=== PATIENT | female | born 1970 | race Caucasian/White ===

== ENCOUNTER 2017-05-16 05:05 | Emergency (ER) | payer SELFPAY ==
[~2017-05-16] VITALS: Ht 167.6 cm; Wt 64.0 kg
[2017-05-16 05:10] VITALS: Ht 167.6 cm; Wt 64.0 kg
[2017-05-16] MEDS ORDERED: ASPIRIN 325 MG TAB PO STA ×2 (05:18→06:37)
--- NOTE | 2017-05-16 05:37 | RADRPT ---
PROCEDURE: XR Chest. CLINICAL INDICATION: Chest pain TECHNIQUE: A single AP view of the chest was obtained. COMPARISON: None. FINDINGS: No focal airspace opacification, pleural effusion or pneumothorax is seen. The cardiomediastinal si lhouette is within normal limits for size. The osseous structures are unremarkable. IMPRESSION: Unremarkable chest x-ray. RPTAT: HH .Janiya Toledo MD, MD Date Time Electronically viewed and signed by .Janiya Toledo MD, on 05/16/2017 05:37 .G/
[2017-05-16] MEDS ORDERED: morphine 4 MG/ML VIAL IV STA (06:37)
[2017-05-16] MEDS ORDERED: ONDANSETRON 4 MG INJ IV STA (06:37)
[2017-05-16 06:58] LABS: BASOPHILS % 0.8 % (0.0-2.0); EOSINOPHILS # 0.2 10^3/ul (0.0-0.5); EOSINOPHILS % 3.2 % (0.0-7.0); HEMOGLOBIN 12.7 g/dl (12.0-16.0); LYMPHOCYTES % 21.5 % (15.0-51.0); MEAN CORPUSCULAR HEMOGLOBIN 29.3 pg (29.0-33.0); MEAN CORPUSCULAR HGB CONC 33.4 g/dl (32.0-37.0); MEAN CORPUSCULAR VOLUME 87.6 fl (82.0-101.0); MEAN PLATELET VOLUME 12.1 fl (7.4-10.4); MONOCYTE # 0.5 10^3/ul (0.3-0.9); MONOCYTES % 9.7 % (0.0-11.0); NEUTROPHIL # 3.1 10^3/ul (1.6-7.5); NEUTROPHILS % 64.6 % (39.0-77.0); PLATELET COUNT 200 10^3/UL (140-415); RED BLOOD COUNT 4.34 10^6/ul (4.20-5.40); RED CELL DISTRIBUTION WIDTH 13.8 % (11.5-14.5); WHITE BLOOD COUNT 4.7 10^3/ul (4.8-10.8)
[2017-05-16 07:06] LABS: ANION GAP 13 (8-16); BLOOD UREA NITROGEN 11 mg/dl (7-20); CALCIUM 9.1 mg/dl (8.4-10.2); CARBON DIOXIDE 25 mmol/L (21-31); CHLORIDE 108 mmol/L (97-110); CREATININE 0.61 mg/dl (0.44-1.00); GLUCOSE 92 mg/dl (70-220); POTASSIUM 3.5 mmol/L (3.5-5.1); SODIUM 142 mmol/L (135-144)
[2017-05-16] MEDS ORDERED: IOHEXOL 300MG/ML 150 ML BTL ONE (07:13)
[2017-05-16] MEDS ORDERED: SOD CHLORIDE 0.9% 100 ML ONE (07:13)
[2017-05-16 07:18] LABS: B-TYPE NATRIURETIC PEPTIDE 41 PG/ML (0-125)
[2017-05-16 07:30] LABS: TROPONIN-I < 0.012 ng/ml (0.00-0.12)
--- NOTE | 2017-05-16 08:48 | RADRPT ---
PROCEDURE: CT pulmonary angiogram. CLINICAL INDICATION: Chest pain and shortness of breath. TECHNIQUE: CT scan of the chest and CT pulmonary angiogram was performed utilizing axial tomograp hic imaging from the thoracic inlet to the domes of the diaphragm. High-resolution thin slice coron al and sagittal imaging was obtained from the axial source images. 3-D volumetric rendered post pro cessing was performed as well. The patient was examined following the uncomplicated intravenous adm inistration of 90 cc of Omnipaque-300. The images were reviewed on a PACS workstation. The total exa m CTDI equals 19.72, 6.10 and the total exam DLP equals 224.25 mGy-cm. One or more of the following dose reduction techniques were used: Automated exposure control, adjustment of the mA and / or kV according to patient size, or use of iterative reconstruction technique. COMPARISON: No prior studies are available for comparison. FINDINGS: The lungs demonstrate bibasilar atelectatic changes. No focal airspace opacity, pleural effusion, o r pneumothorax is seen. No pulmonary nodules or masses are identified. There is no abnormal interst itial thickening. The trachea and proximal bronchi are unremarkable. The visualized thyroid is unremarkable. The heart is grossly normal in size and configuration. The aorta demonstrates normal branching pattern. The aorta is normal in caliber and contains vascular calcifications. There is no evidence of aortic dissection. The central pulmonary arteries are tuan l in caliber. The attenuation of the central pulmonary arteries measures 350 HU. No filling defect s are identified within the proximal pulmonary arterial branches to suggest pulmonary embolism. No hilar, mediastinal, or axillary lymphadenopathy is identified. Limited evaluation of the upper abdomen is unremarkable. The osseous structures demonstrate mild de xtroscoliosis. IMPRESSION: 1. No CT evidence for pulmonary embolism. 2. Unremarkable CT of the chest. RPTAT: HH .Janiya Toledo MD, Date Time Electronically viewed and signed by .Janiya Toledo MD, on 05/16/2017 08:48 .G/
[2017-05-16] MEDS ORDERED: ATOR20TA38 PO (09:13)
[2017-05-16] MEDS ORDERED: ASPI-664 PO (09:13)
[2017-05-16] MEDS ORDERED: METO-448 PO (09:13)
--- NOTE | 2017-05-16 10:00 | ERD ---
ER Documentation Chief Complaint Date/Time DATE: 05/16/17 TIME: 09:57 Chief Complaint intermittent CP x5days, sudden SOB 45 min [employer]. hx elevated trop, HTN HPI This is a 46-year-old female who says she was awoke this morning at 4 AM some substernal chest pressure and shortness of breath. She says she feels like it is hard to get a deep breath but it is very mild. Patient had similar symptoms but much worse chest pain in December/January 2017. The patient was seen at [facility] and was found to have an elevated troponin. The patient then went through a nuclear stress test followed by heart catheterization at [facility]. The heart catheterization was completely clean according to the patient and showed no signs of any plaque buildup. They told her that she probably was having some type of vasospasm. She was put on a beta-yakov and a statin medication although she states her cholesterol was found to be normal. She stated that there is debate among the doctors whether or not she should be on a statin or not. Patient states her chest pressure is nearly gone at this point. No recent cough or trauma. She is not on any hormones and does not smoke ROS All systems reviewed and are negative except as per history of present illness. Medications Home Meds Active Scripts Diltiazem Hcl (DILTIAZEM 24HR CD) 180 Mg Cap.er.24h, 180 MG PO DAILY, #30 CAP Prov:BIJAN LANDEROS DO 05/16/17 Reported Medications Atorvastatin Calcium* (Atorvastatin Calcium*) 20 Mg Tablet, 20 MG PO QHS, #30 TAB 05/16/17 Metoprolol Tartrate* (Lopressor*) 25 Mg Tab, 12.5 MG PO BID, #60 TAB 05/16/17 Aspirin (Low Dose Aspirin) 81 Mg Tablet.dr, 81 MG PO DAILY, #30 TAB 05/16/17 Allergies Allergies: Coded Allergies: No Known Allergy (Unverified , 05/16/17) PMhx/Soc Medical and Surgical Hx: pt denies Medical Hx, pt denies Surgical Hx Hx Alcohol Use: Yes (occasional) Hx Substance Use: No Hx Tobacco Use: No Smoking Status: Never smoker FmHx Family History: No coronary disease Physical Exam Vitals Vital Signs Date Time Temp Pulse Resp B/P Pulse Ox O2 Delivery O2 Flow Rate FiO2 05/16/17 10:30 61 20 108/57 100 Room Air 05/16/17 08:51 67 20 126/71 100 Room Air 05/16/17 07:00 66 20 110/62 100 05/16/17 05:10 97.7 69 20 153/84 100 Physical Exam Const: Well-developed, well-nourished Head: Atraumatic, normocephalic Eyes: Normal Conjunctiva, PERRLA, EOMI, normal sclera, no nystagmus ENT: Normal External Ears, Nose and Mouth, moist mucus membranes. Neck: Full range of motion. No meningismus, no lymphadenopathy. Resp: Clear to auscultation bilaterally, no wheezing, rhonchi, rales Cardio: Regular rate and rhythm, no murmurs, S1 S2 present Abd: Soft, non tender x 4, non distended. Normal bowel sounds, no guarding or rebound, no pulsitile abdominal masses or bruits Skin: No petechiae or rashes, no ecchymosis , no maculopapular rash Back: No midline or flank tenderness Ext: No cyanosis, or edema, FROM x 4, normal inspection, neurovascularly intact x 4 Neur: Awake and alert, STR 5/5 x 4, sensation intact x 4, no focal findings, cerebellum intact Psych: Normal Mood and Affect Result Diagram: 05/16/17 0550 05/16/17 0550 Results 24 hrs Laboratory Tests Test 05/16/17 05:50 05/16/17 10:43 White Blood Count 4.710^3/ul Red Blood Count 4.3410^6/ul Hemoglobin 12.7g/dl Hematocrit 38.0% Mean Corpuscular Volume 87.6fl Mean Corpuscular Hemoglobin 29.3pg Mean Corpuscular Hemoglobin Concent 33.4g/dl Red Cell Distribution Width 13.8% Platelet Count 28747^3/UL Mean Platelet Volume 12.1fl Neutrophils % 64.6% Lymphocytes % 21.5% Monocytes % 9.7% Eosinophils % 3.2% Basophils % 0.8% Nucleated Red Blood Cells % 0.0/100WBC Neutrophils # 3.110^3/ul Lymphocytes # 1.010^3/ul Monocytes # 0.510^3/ul Eosinophils # 0.210^3/ul Basophils # 0.010^3/ul Nucleated Red Blood Cells # 0.010^3/ul Sodium Level 142mmol/L Potassium Level 3.5mmol/L Chloride Level 108mmol/L Carbon Dioxide Level 25mmol/L Anion Gap 13 Blood Urea Nitrogen 11mg/dl Creatinine 0.61mg/dl Glucose Level 92mg/dl Calcium Level 9.1mg/dl Troponin I < 0.012ng/ml < 0.012ng/ml B-Type Natriuretic Peptide 41PG/ML Current Medications Medications (Trade) Dose Ordered Sig/Meagan Route PRN Reason Start Time Stop Time Status Last Admin Dose Admin Aspirin (Aspirin) 325 mg ONCE STAT PO 05/16/17 05:18 05/16/17 05:20 DC 05/16/17 06:14 Aspirin (Aspirin) 325 mg ONCE STAT PO 05/16/17 06:37 05/16/17 06:40 DC Morphine Sulfate (morphine) 4 mg ONCE STAT IV 05/16/17 06:37 05/16/17 06:40 DC Ondansetron HCl 4 mg 4 mg ONCE STAT IV 05/16/17 06:37 05/16/17 06:40 DC Sodium Chloride (NS) 100 ml @ ud STK-MED ONCE .ROUTE 05/16/17 07:13 05/16/17 07:14 DC 05/16/17 08:15 Iohexol (Omnipaque 300mg/ ml) 150 ml STK-MED ONCE .ROUTE 05/16/17 07:13 05/16/17 07:14 DC 05/16/17 08:15 Procedures/MDM PROCEDURE: CT pulmonary angiogram. CLINICAL INDICATION: Chest pain and shortness of breath. TECHNIQUE: CT scan of the chest and CT pulmonary angiogram was performed utilizing axial tomographic imaging from the thoracic inlet to the domes of the diaphragm. High-resolution thin slice coronal and sagittal imaging was obtained from the axial source images. 3-D volumetric rendered post processing was performed as well. The patient was examined following the uncomplicated intravenous administration of 90 cc of Omnipaque-300. The images were reviewed on a PACS workstation. The total exam CTDI equals 19.72, 6.10 and the total exam DLP equals 224.25 mGy-cm. One or more of the following dose reduction techniques were used: Automated exposure control, adjustment of the mA and / or kV according to patient size, or use of iterative reconstruction technique. COMPARISON: No prior studies are available for comparison. FINDINGS: The lungs demonstrate bibasilar atelectatic changes. No focal airspace opacity , pleural effusion, or pneumothorax is seen. No pulmonary nodules or masses are identified. There is no abnormal interstitial thickening. The trachea and proximal bronchi are unremarkable. The visualized thyroid is unremarkable. The heart is grossly normal in size and configuration. The aorta demonstrates normal branching pattern. The aorta is normal in caliber and contains vascular calcifications. There is no evidence of aortic dissection. The central pulmonary arteries are normal in caliber. The attenuation of the central pulmonary arteries measures 350 HU. No filling defects are identified within the proximal pulmonary arterial branches to suggest pulmonary embolism. No hilar, mediastinal, or axillary lymphadenopathy is identified. Limited evaluation of the upper abdomen is unremarkable. The osseous structures demonstrate mild dextroscoliosis. IMPRESSION: 1. No CT evidence for pulmonary embolism. 2. Unremarkable CT of the chest. RPTAT: .Janiya Toledo MD, Date Time Electronically viewed and signed by .Janiya Toledo MD, on 05/16/2017 08 :48 .G/ CC: BIJAN LANDEROS DO PROCEDURE: XR Chest. CLINICAL INDICATION: Chest pain TECHNIQUE: A single AP view of the chest was obtained. COMPARISON: None. FINDINGS: No focal airspace opacification, pleural effusion or pneumothorax is seen. The cardiomediastinal silhouette is within normal limits for size. The osseous structures are unremarkable. IMPRESSION: Unremarkable chest x-ray. RPTAT: .Janiya Toledo MD, Date Time Electronically viewed and signed by .Janiya Toledo MD, MD on 05/16/2017 05 :37 .G/ CC: PRICILA LUEVANO DO EKG: Rate/Rhythm: Normal Sinus Rhythm,NL intervals QRS, ST, QT: NORMAL [place], QRS, QT] Impression: NORMAL EKG Patient's second troponin is negative. I discussed them at length follow-up. We will have him follow-up with Dr. Zavaleta. Beta-blockers and working if this is vasospasm will change to diltiazem 180 mg controlled release. Gave him strict warning precautions. Do not feel she is adamant at this time if she has clean coronaries and 2 troponins are negative. Departure Diagnosis: Primary Impression: Chest pain Chest pain type: unspecified Qualified Code: R07.9 - Chest pain, unspecified type Condition: Stable BIJAN LANDEROS DO May 16, 2017 10:00
[2017-05-16] MEDS ORDERED: DILT180C81 PO (11:55)
[2017-05-16 12:05] VITALS: BP 105/62; PULSE 64; RESP 20
== END 2017-05-16 12:17 | disposition home or self-care (01) ==
LOC: E/R 05:05
DX: R07.9 Chest pain, unspecified (principal); I10 Essential (primary) hypertension; Z79.82 Long term (current) use of aspirin
CPT/HCPCS: 36415; 71010; 71275; 80048; 83880; 84484; 85025; 99285; J2405; Q9967; J2270